=== PATIENT | male | born 1950 | race Caucasian/White ===

== ENCOUNTER → 2021-07-26 | Day surgery (SDC) | payer BC, MEDICARE ==
[~2021-07-26] MED LIST: ATENOLOL50 MG PO; ATORVASTATIN CA20 MG PO; BALANCED SALT SOLN (OPTH) 15 ML BTL IO ONE; BUPIVACAINE HC 0.75% PF 10ML VIAL INJ ONE; CLONAZEPAM0.5 MG PO; CYMBALTA20 MG PO; FINASTERIDE5 MG PO; FLONASE ALLERG9.9 ML INH; HYDROCHLOROTH12.5 MG; LEVOTHYROXINE50 MCG PO; LIDOCAINE 2% /EPINEPHRINE 20 ML SDV INJ ONE; LIDOCAINE HCL 1% 30ML-PF VIAL ONE; LINZESS72 MCG; LOSARTAN POTAS100 MG PO; METHSCOPOLAMIN2.5 MG; NAPROSYN500 MG PO; NEOMYCIN/POLYMYXIN/DEX (OPTH) 3.5 GM TUBE ONE; OMEPRAZOLE40 MG PO; POVIDONE IODINE 5% (OPTH) 30 ML BTL ONE; REVATIO20 MG PO; TRAZODONE HCL50 MG PO
[2021-07-26 15:50] VITALS: BP 121/83
== END | disposition home or self-care (01) ==
LOC: OR 12:35
PROVIDERS: ATTEND Ophthalmology
DX: H11.052 Peripheral pterygium, progressive, left eye (principal); E03.9 Hypothyroidism, unspecified; Z88.6 Allergy status to analgesic agent; I10 Essential (primary) hypertension; E78.5 Hyperlipidemia, unspecified; K21.9 Gastro-esophageal reflux disease without esophagitis; I49.3 Ventricular premature depolarization; N52.9 Male erectile dysfunction, unspecified; Z01.812 Encounter for preprocedural laboratory examination; Z20.822 Contact with and (suspected) exposure to COVID-19
CPT/HCPCS: 65426; 88304; J2001; U0002

== ENCOUNTER → 2021-08-23 | Day surgery (SDC) | payer BC, MEDICARE ==
[2021-08-22 11:26] LABS: BASOPHILS % 0.5 % (0.0-1.0); EOSINOPHILS # (AUTO) 0.5 (0.0-0.4); EOSINOPHILS % 5.7 % (0.0-6.0); HEMATOCRIT 49.7 % (38.2-49.6); HEMOGLOBIN 16.4 g/dL (14.0-18.0); LYMPHOCYTES # (AUTO) 2.1 (1.0-3.2); LYMPHOCYTES % 25.8 % (18.0-39.1); MEAN CORPUSCULAR HEMOGLOBIN 29.8 pg (28-32); MEAN CORPUSCULAR VOLUME 90.2 fL (81-99); MONOCYTES # (AUTO) 0.6 (0.2-0.8); MONOCYTES % 7.4 % (4.4-11.3); NEUTROPHILS % 60.2 % (38.7-80.0); PLATELET COUNT 250 x10e3/uL (140-360); RED BLOOD COUNT 5.51 x10e6/uL (4.3-5.7); RED CELL DISTRIBUTION WIDTH 13.5 % (11.7-14.4)
[~2021-08-23] MED LIST changes: +FENTANYL CITRATE/PF 100MCG/2 ML INJ ONE; -HYDROCHLOROTH12.5 MG; +HYDROCHLOROTH12.5 MG PO; -LIDOCAINE 2% /EPINEPHRINE 20 ML SDV INJ ONE; +LIDOCAINE 2%/ EPINEPHRINE 20ML MDV ONE; -LINZESS72 MCG; +LINZESS72 MCG PO; -METHSCOPOLAMIN2.5 MG; +METHSCOPOLAMIN2.5 MG PO; +MIDAZOLAM HCL 2 MG/2 ML VIAL ONE
[2021-08-23 15:15] VITALS: BP 126/88
== END | disposition home or self-care (01) ==
LOC: OR 12:43
PROVIDERS: ATTEND Ophthalmology
DX: H11.051 Peripheral pterygium, progressive, right eye (principal); I25.10 Atherosclerotic heart disease of native coronary artery without angina pectoris; I10 Essential (primary) hypertension; K21.9 Gastro-esophageal reflux disease without esophagitis; F43.10 Post-traumatic stress disorder, unspecified; F32.A Depression, unspecified; F41.9 Anxiety disorder, unspecified; Z88.6 Allergy status to analgesic agent; Z01.812 Encounter for preprocedural laboratory examination; Z20.822 Contact with and (suspected) exposure to COVID-19; Z95.5 Presence of coronary angioplasty implant and graft; Z79.899 Other long term (current) drug therapy
CPT/HCPCS: 36415; 65426; 85025; 88304; J2001; J2250; J3010; U0002; V2790; 88300

== ENCOUNTER → 2021-09-27 | Day surgery (SDC) | payer BC, MEDICARE ==
[~2021-09-27] MED LIST changes: -BALANCED SALT SOLN (OPTH) 15 ML BTL IO ONE; -BUPIVACAINE HC 0.75% PF 10ML VIAL INJ ONE; -FENTANYL CITRATE/PF 100MCG/2 ML INJ ONE; -LIDOCAINE 2%/ EPINEPHRINE 20ML MDV ONE; -LIDOCAINE HCL 1% 30ML-PF VIAL ONE; -NEOMYCIN/POLYMYXIN/DEX (OPTH) 3.5 GM TUBE ONE; +OR PHACO EYE KIT ONE; -POVIDONE IODINE 5% (OPTH) 30 ML BTL ONE; +PREOP PHACO EYE KIT ONE
[2021-09-27 10:50] VITALS: BP 136/96
== END | disposition home or self-care (01) ==
LOC: OR 08:00
PROVIDERS: ATTEND Ophthalmology
DX: H25.12 Age-related nuclear cataract, left eye (principal); I10 Essential (primary) hypertension; E78.5 Hyperlipidemia, unspecified; I48.91 Unspecified atrial fibrillation; E03.9 Hypothyroidism, unspecified; F43.10 Post-traumatic stress disorder, unspecified; F32.A Depression, unspecified; Z88.6 Allergy status to analgesic agent; Z01.810 Encounter for preprocedural cardiovascular examination; Z01.812 Encounter for preprocedural laboratory examination; Z20.822 Contact with and (suspected) exposure to COVID-19; Z79.899 Other long term (current) drug therapy
CPT/HCPCS: 66984; 93005; J2250; U0002; V2632

== ENCOUNTER → 2021-10-11 | Day surgery (SDC) | payer BC, MEDICARE ==
[~2021-10-11] MED LIST changes: +FENTANYL CITRATE/PF 100MCG/2 ML INJ ONE
[2021-10-11 11:40] VITALS: BP 104/82
== END | disposition home or self-care (01) ==
LOC: OR 08:04
PROVIDERS: ATTEND Ophthalmology
DX: H25.11 Age-related nuclear cataract, right eye (principal); I48.91 Unspecified atrial fibrillation; I25.10 Atherosclerotic heart disease of native coronary artery without angina pectoris; I10 Essential (primary) hypertension; E03.9 Hypothyroidism, unspecified; K21.9 Gastro-esophageal reflux disease without esophagitis; F43.10 Post-traumatic stress disorder, unspecified; F32.A Depression, unspecified; Z88.6 Allergy status to analgesic agent; Z01.812 Encounter for preprocedural laboratory examination; Z20.822 Contact with and (suspected) exposure to COVID-19; Z79.899 Other long term (current) drug therapy; Z95.5 Presence of coronary angioplasty implant and graft
CPT/HCPCS: J2250; J3010; U0002; V2632